=== PATIENT | female | born 1990 | race Asian ===

== ENCOUNTER 2020-01-09 03:23 | Emergency (ER) | payer SELFPAY ==
[2020-01-09] VITALS (7 sets, daily range): BP systolic 74–104; BP diastolic 44–88
[~2020-01-09] VITALS: Ht 162.6 cm; Wt 65.8 kg
--- NOTE | 2020-01-09 03:30 | NUR ---
ED Nurse Note: Pt brought in by ambulance from home, pt was found outside of her apartment where she reported that she had been drinking all day and took a unknown amount of ambien, unknown if ingestion was intentional. Pt presently unresponsive to painful stimuli, VSS, Pt did not vomit. Pt placed on front desk monitor. ERMD at bedside. Poison control contacted, instructed to closely monitor pt for 4-6hrs r/t [employer] depression or possible respiratory depression. also instructed to draw full set of labs including tylenol level, and to give fluids.
--- NOTE | 2020-01-09 03:33 | Emergency Room Report ---
History of Present Illness General Chief Complaint: Overdose Source: Patient (Mark Haro MD) Present Illness HPI Patient is a 28-year-old female presents for increased altered mental status and possible overdose. Patient reportedly had been drinking heavily alcohol as well as taken unknown amount of Ambien. Unknown time of ingestion. Patient had blood sugar of greater than 130. Has been having increased altered mental status since being transported. Patient was brought in by EMS. Reportedly they found a bottle of Ambien which was empty 10 mg tablets unknown number. Patient has unknown past medical history.History is limited by patient's mental status.[employer] was reportedly on the scene. (Mark Haro MD) Allergies: Coded Allergies: UNABLE TO ASSESS (Unverified , 01/09/20) pt unconscious COVID-19 Screening Contact w/high risk pt: No Experienced COVID-19 symptoms?: No COVID-19 Testing performed MULT AU MATIC OPERATOR: No (Mark Haro MD) Patient History Past Medical History: see triage record Reviewed Nursing Documentation: PMH: Agreed; PSxH: Agreed Last Menstrual Period: unk (Mark Haro MD) Last Menstrual Period: unk (Carlos Tiwari MD) Nursing Documentation-PMH Past Medical History Deferred: Patient Unconscious Past Medical History: Deferred (Mark Haro MD) Review of Systems All Other Systems: limited - Limited by patient's mental status. (Mark Haro MD) Physical Exam Vital Signs Date Time Temp Pulse Resp B/P (MAP) Pulse Ox O2 Delivery O2 Flow Rate FiO2 01/09/20 03:25 98.2 90 16 104/65 (78) 98 Room Air Sp02 EP Interpretation: reviewed, normal General Appearance: other - Somnolent Head: atraumatic ENT: normal voice Neck: normal inspection, full range of motion, supple, no bony tend Respiratory: normal inspection, lungs clear, normal breath sounds, no respiratory distress, no retraction, no wheezing Cardiovascular #1: regular rate, rhythm, no edema Gastrointestinal: normal inspection, normal bowel sounds, non tender, soft, no guarding, no hernia Musculoskeletal: normal inspection Neurologic: other - Somnolent, withdraws to pain, pupils reactive Psychiatric: other - Currently unresponsive Skin: no rash (Mark Haro MD) Procedures Critical Care Time Critical Care Time Patient had a critical medical condition which untreated could potentially result in life or limb threatening injury. Total critical care time excluding procedures approximately 45 minutes. (Mark Haro MD) Medical Decision Making Diagnostic Impression: Primary Impression: Drug overdose Qualified Codes: T50.901A - Poisoning by unspecified drugs, medicaments and biological substances, accidental (unintentional), initial encounter Additional Impression: Alcohol intoxication Qualified Codes: F10.929 - Alcohol use, unspecified with intoxication, unspecified ER Course .Patient presented for overdose. Differential diagnosis include was not limited to intoxication, electrolyte abnormality, among others. Patient was noted to be markedly somnolent and per EMS she had been recently drinking heavily alcohol. Patient noted to have withdrawal to pain with reactive pupils.She appears to be somewhat intoxicated. Poison control was contacted for assistance with management. They recommended continued observation for 4 to 6 hours.Patient's laboratory testing was notable for markedly elevated blood alcohol. Patient started on IV fluid bolus due to hypotension. Patient was endorsed to Dr. Tiwari pending reevaluation. Labs Test 01/09/20 03:40 01/09/20 05:30 White Blood Count 4.4 K/UL (4.8-10.8) Red Blood Count 3.75 M/UL (4.20-5.40) Hemoglobin 13.4 G/DL (12.0-16.0) Hematocrit 40.1 % (37.0-47.0) Mean Corpuscular Volume 107 FL (80-99) Mean Corpuscular Hemoglobin 35.6 PG (27.0-31.0) Mean Corpuscular Hemoglobin Concent 33.3 G/DL (32.0-36.0) Red Cell Distribution Width 12.2 % (11.6-14.8) Platelet Count 211 K/UL (150-450) Mean Platelet Volume 7.7 FL (6.5-10.1) Neutrophils (%) (Auto) % (45.0-75.0) Lymphocytes (%) (Auto) % (20.0-45.0) Monocytes (%) (Auto) % (1.0-10.0) Eosinophils (%) (Auto) % (0.0-3.0) Basophils (%) (Auto) % (0.0-2.0) Differential Total Cells Counted 100 Neutrophils % (Manual) 27 % (45-75) Lymphocytes % (Manual) 65 % (20-45) Monocytes % (Manual) 8 % (1-10) Eosinophils % (Manual) 0 % (0-3) Basophils % (Manual) 0 % (0-2) Band Neutrophils 0 % (0-8) Platelet Estimate Adequate Platelet Morphology Normal Macrocytosis 1+ Urine Color Pale yellow Urine Appearance Clear Urine pH 5 (4.5-8.0) Urine Specific [place] 1.005 (1.005-1.035) Urine Protein Negative (NEGATIVE) Urine Glucose (UA) Negative (NEGATIVE) Urine Ketones Negative (NEGATIVE) Urine Blood Negative (NEGATIVE) Urine Nitrite Negative (NEGATIVE) Urine Bilirubin Negative (NEGATIVE) Urine Urobilinogen Normal MG/DL (0.0-1.0) Urine Leukocyte Esterase 1+ (NEGATIVE) Urine RBC 0-2 /HPF (0 - 2) Urine WBC 0-2 /HPF (0 - 2) Urine Squamous Epithelial Cells Occasional /LPF Urine Bacteria Occasional /HPF (NONE) Urine HCG, Qualitative Negative (NEGATIVE) Anion Gap 10 mmol/L (5-15) Total Bilirubin 0.3 MG/DL (0.2-1.0) Aspartate Amino Transf (AST/SGOT) 24 U/L (15-37) Alanine Aminotransferase (ALT/SGPT) 17 U/L (12-78) Alkaline Phosphatase 37 U/L (46-116) Total Protein 7.5 G/DL (6.4-8.2) Albumin 3.9 G/DL (3.4-5.0) Globulin 3.6 g/dL Albumin/Globulin Ratio 1.1 (1.0-2.7) Thyroid Stimulating Hormone (TSH) 0.735 uiU/mL (0.358-3.740) Salicylates Level 1.2 ug/mL (2.8-20) Urine Opiates Screen Negative (NEGATIVE) Acetaminophen Level < 2 MCG/ML (10-30) Urine Barbiturates Screen Negative (NEGATIVE) Phencyclidine (PCP) Screen Negative (NEGATIVE) Urine Amphetamines Screen Negative (NEGATIVE) Urine Benzodiazepines Screen Negative (NEGATIVE) Urine Cocaine Screen Negative (NEGATIVE) Urine Marijuana (THC) Screen Negative (NEGATIVE) (Mark Haro MD) ER Course Hospital Course 29-year-old female presents after overdose on Ambien and alcohol patient initially seen and evaluated by Dr. Haro; please see his note for full history and physical Cli initial alcohol elevated. Drug screen negative. Patient had been hypotensive initially but responded to IV fluid boluses. Protecting airway on cardiac cath lab technologist. Initially discussed with poison control who recommended observation for 4 to 6 hours. Patient more alert and oriented this morning. BP improved. Stated her name and provided information for her boyfriend. Stated that she took her normal dose of Ambien but did drink alcohol. Denies trying to hurt herself. Discussed with boyfriend on the phone and he agreed that patient is nondanger to self. Will discharge home. Boyfriend here to picking tech patient. Safe for discharge with close outpatient follow-up i. I feel this is a highly complex case requiring extensive working including EKG/Rhythm strip, Xray/CT/US, Blood/urine lab work, repeat exams while in ED, and administration of strong opiates/narcotics for pain control, admission to hospital or close patient follow up. Diagnosis -drug overdose, alcohol intoxication Stable and discharged to home. Followup with PMD. Return to ED if symptoms recur or worsen Laboratory Tests Test 01/09/20 03:40 01/09/20 05:30 01/09/20 10:35 White Blood Count 4.4 K/UL (4.8-10.8) L Red Blood Count 3.75 M/UL (4.20-5.40) L Hemoglobin 13.4 G/DL (12.0-16.0) Hematocrit 40.1 % (37.0-47.0) Mean Corpuscular Volume 107 FL (80-99) H Mean Corpuscular Hemoglobin 35.6 PG (27.0-31.0) H Mean Corpuscular Hemoglobin Concent 33.3 G/DL (32.0-36.0) Red Cell Distribution Width 12.2 % (11.6-14.8) Platelet Count 211 K/UL (150-450) Mean Platelet Volume 7.7 FL (6.5-10.1) Neutrophils (%) (Auto) % (45.0-75.0) Lymphocytes (%) (Auto) % (20.0-45.0) Monocytes (%) (Auto) % (1.0-10.0) Eosinophils (%) (Auto) % (0.0-3.0) Basophils (%) (Auto) % (0.0-2.0) Differential Total Cells Counted 100 Neutrophils % (Manual) 27 % (45-75) L Lymphocytes % (Manual) 65 % (20-45) H Monocytes % (Manual) 8 % (1-10) Eosinophils % (Manual) 0 % (0-3) Basophils % (Manual) 0 % (0-2) Band Neutrophils 0 % (0-8) Platelet Estimate Adequate Platelet Morphology Normal Macrocytosis 1+ Urine Color Pale yellow Urine Appearance Clear Urine pH 5 (4.5-8.0) Urine Specific [place] 1.005 (1.005-1.035) Urine Protein Negative (NEGATIVE) Urine Glucose (UA) Negative (NEGATIVE) Urine Ketones Negative (NEGATIVE) Urine Blood Negative (NEGATIVE) Urine Nitrite Negative (NEGATIVE) Urine Bilirubin Negative (NEGATIVE) Urine Urobilinogen Normal MG/DL (0.0-1.0) Urine Leukocyte Esterase 1+ (NEGATIVE) H Urine RBC 0-2 /HPF (0 - 2) Urine WBC 0-2 /HPF (0 - 2) Urine Squamous Epithelial Cells Occasional /LPF Urine Bacteria Occasional /HPF (NONE) Urine HCG, Qualitative Negative (NEGATIVE) Sodium Level 140 MMOL/L (136-145) 143 MMOL/L (136-145) Potassium Level 3.8 MMOL/L (3.5-5.1) 4.8 MMOL/L (3.5-5.1) Chloride Level 106 MMOL/L (98-107) 112 MMOL/L (98-107) H Carbon Dioxide Level 24 MMOL/L (21-32) 24 MMOL/L (21-32) Anion Gap 10 mmol/L (5-15) 7 mmol/L (5-15) Blood Urea Nitrogen 13 mg/dL (7-18) 12 mg/dL (7-18) Creatinine 0.6 MG/DL (0.55-1.30) 0.6 MG/DL (0.55-1.30) Estimat Glomerular Filtration Rate > 60 mL/min (>60) > 60 mL/min (>60) Glucose Level 96 MG/DL (74-106) 93 MG/DL (74-106) Calcium Level 7.9 MG/DL (8.5-10.1) L 6.7 MG/DL (8.5-10.1) L Total Bilirubin 0.3 MG/DL (0.2-1.0) Aspartate Amino Transf (AST/SGOT) 24 U/L (15-37) Alanine Aminotransferase (ALT/SGPT) 17 U/L (12-78) Alkaline Phosphatase 37 U/L (46-116) L Total Protein 7.5 G/DL (6.4-8.2) Albumin 3.9 G/DL (3.4-5.0) Globulin 3.6 g/dL Albumin/Globulin Ratio 1.1 (1.0-2.7) Thyroid Stimulating Hormone (TSH) 0.735 uiU/mL (0.358-3.740) Salicylates Level 1.2 ug/mL (2.8-20) L 0.5 ug/mL (2.8-20) L Urine Opiates Screen Negative (NEGATIVE) Acetaminophen Level < 2 MCG/ML (10-30) L < 2 MCG/ML (10-30) L Urine Barbiturates Screen Negative (NEGATIVE) Phencyclidine (PCP) Screen Negative (NEGATIVE) Urine Amphetamines Screen Negative (NEGATIVE) Urine Benzodiazepines Screen Negative (NEGATIVE) Urine Cocaine Screen Negative (NEGATIVE) Urine Marijuana (THC) Screen Negative (NEGATIVE) Serum Alcohol 257 mg/dL 210 mg/dL 116 mg/dL (Carlos Tiwari MD) Last Vital Signs Date Time Temp Pulse Resp B/P (MAP) Pulse Ox O2 Delivery O2 Flow Rate FiO2 01/09/20 03:25 98.2 90 16 104/65 (78) 98 Room Air Status: unchanged (Mark Haro MD) Status: improved (Carlos Tiwari MD) Disposition: HOME, SELF-CARE Condition: Stable Mark Haro MD Jan 09, 2020 03:33 Carlos Tiwari MD Jan 09, 2020 14:28
--- NOTE | 2020-01-09 03:34 | NUR ---
ED Nurse Note: poison control yg # [phone], instructions relayed to ROSALINDA
[2020-01-09 03:54] LABS: APPEARANCE,URINE CLEAR; BILIRUBIN, URINE NEGATIVE (NEGATIVE); COLOR,URINE PALE YELLOW; GLUCOSE, URINE (UA) NEGATIVE (NEGATIVE); KETONES,URINE NEGATIVE (NEGATIVE); LEUKOCYTE ESTERASE ,URINE 1+ (NEGATIVE); NITRITE,URINE NEGATIVE (NEGATIVE); PH,URINE 5 (4.5-8.0); PROTEIN,URINE NEGATIVE (NEGATIVE); UROBILINOGEN,URINE NORMAL MG/DL (0.0-1.0)
[2020-01-09 04:02] LABS: ANION GAP 10 mmol/L (5-15); BLOOD UREA NITROGEN 13 mg/dL (7-18); CALCIUM 7.9 MG/DL (8.5-10.1); CARBON DIOXIDE 24 MMOL/L (21-32); CHLORIDE 106 MMOL/L (98-107); CREATININE 0.6 MG/DL (0.55-1.30); HEMATOCRIT 40.1 % (37.0-47.0); HEMOGLOBIN 13.4 G/DL (12.0-16.0); MEAN CORPUSCULAR VOLUME 107 FL (80-99); PLATELET COUNT 211 K/UL (150-450); POTASSIUM 3.8 MMOL/L (3.5-5.1); RED BLOOD COUNT 3.75 M/UL (4.20-5.40); RED CELL DISTRIBUTION WIDTH 12.2 % (11.6-14.8); SODIUM 140 MMOL/L (136-145); WHITE BLOOD COUNT 4.4 K/UL (4.8-10.8)
[2020-01-09 04:14] LABS: ALANINE AMINOTRANSFERASE 17 U/L (12-78); ALBUMIN 3.9 G/DL (3.4-5.0); ALBUMIN/GLOBULIN RATIO 1.1 (1.0-2.7); ALKALINE PHOSPHATASE 37 U/L (46-116); ASPARTATE AMINO TRANSFERASE 24 U/L (15-37); BILIRUBIN,TOTAL 0.3 MG/DL (0.2-1.0)
--- NOTE | 2020-01-09 05:54 | NUR ---
ED Nurse Note: Pt belongings in locker #3
[2020-01-09 05:55] LABS: ANION GAP 7 mmol/L (5-15); BLOOD UREA NITROGEN 12 mg/dL (7-18); CALCIUM 6.7 MG/DL (8.5-10.1); CARBON DIOXIDE 24 MMOL/L (21-32); CHLORIDE 112 MMOL/L (98-107); CREATININE 0.6 MG/DL (0.55-1.30); POTASSIUM 4.8 MMOL/L (3.5-5.1); SODIUM 143 MMOL/L (136-145)
--- NOTE | 2020-01-09 07:05 | NUR ---
ED Nurse Note: Report received from [facility]. Pt asleep in bed, no acute distress noted. Pt vital signs stable. [place], and lights dimmed for comfort.
--- NOTE | 2020-01-09 09:06 | NUR ---
ED Nurse Note: Pt arouasble to voice and light pain. Pt appears drowsy and still unable to verbally state name. Pt has productive cough. ERMD aware.
--- NOTE | 2020-01-09 10:04 | NUR ---
ED Nurse Note: Pt still appears drowsy but is now responding to questions. KRISTINAD at bedside. pt reports to ERMD that she does not wish to harm herself, and that she feels better. Will try to find contact of family or friend to safely take patient home. VSS
--- NOTE | 2020-01-09 10:09 | NUR ---
ED Nurse Note: Pt provided phone number of contact: Tim: [phone]
--- NOTE | 2020-01-09 10:17 | NUR ---
ED Nurse Note: Assisted pt onto bedpan. pt was unsteady to walk to restroom. placed pt nonskid socks. pt able to urinate without issues. Have attempted to contact "daniel" per phone number provided by patient, call goes straight to voicemail.
--- NOTE | 2020-01-09 10:51 | NUR ---
ED Nurse Note: Repeat ASA, Acetaminophren, and Alcohol redrawn sent to lab
--- NOTE | 2020-01-09 11:55 | NUR ---
ED Nurse Note: Pt keeps asking for "Frederic" then falls back asleep. VSS.
--- NOTE | 2020-01-09 12:00 | NUR ---
ED Nurse Note: () [phone] at bedside to pick patient up
--- NOTE | 2020-01-09 12:12 | NUR ---
ER DISCHARGE NOTE: Patient is cleared to be discharged per ERMD, pt is aox4, on room air, with stable vital signs. pt was given dc and prescription instructions, pt was able to verbalize understanding, pt id band and iv site removed. pt is walked over to boyfriend patrick car. pt took all belongings.
== END 2020-01-09 12:12 | disposition home or self-care (01) ==
LOC: EDSEX 03:23 → EDBD 03:23 → EMR 03:40 → EDBD 03:40 → EMR 12:12
DX: T42.6X1A Poisoning by other antiepileptic and sedative-hypnotic drugs, accidental (unintentional), initial encounter (principal); F10.929 Alcohol use, unspecified with intoxication, unspecified; Y92.9 Unspecified place or not applicable
CPT/HCPCS: 36415; 80048; 80053; 80307; 81003; 81025; 84443; 85007; 85025; 96360; 96361; 99291; G0480; U0002